=== PATIENT | female | born 1950 | race Caucasian/White ===

== ENCOUNTER 2021-05-24 10:30 | Inpatient (IN) ==
[2021-05-26] MEDS ORDERED: *HR* OxyCODONE/APAP 5/325 TABLET PO PRN (17:39)
[2021-05-26] MEDS ORDERED: Melatonin 3 MG TABLET PO PRN (17:39)
[2021-05-26] MEDS ORDERED: Ammonium Lactate 30 APPL/225 GM BOTTLE TP PRN (18:22)
[2021-05-27] MEDS ORDERED: *HR* Enoxaparin 30 MG/0.3 ML SYRINGE SQ SCH (06:00)
[2021-05-27 07:10] LABS: Basophils # 0.1 K/mcL (0.0-0.2); Basophils % 0.8 %; Eosinophils # 0.7 K/mcL (0.0-0.6); Eosinophils % 5.6 %; Hematocrit 35.7 % (35.3-44.9); Immature Granulocytes % 0.7 % (0-4); Lymphocytes # 1.8 K/mcL (0.6-4.6); Mean Corpuscular HGB Conc 33.6 g/dL (31.6-35.5); Mean Corpuscular Hemoglobin 27.7 pg (28.0-33.3); Mean Corpuscular Volume 82.4 fL (83.0-100.0); Mean Platelet Volume 8.6 fL (9.4-12.4); Monocytes # 0.9 K/mcL (0.0-1.3); Monocytes % 7.8 %; Neutrophils # 8.3 K/mcL (1.6-8.9); Platelet Count 344 K/mcL (140-400); Red Blood Count 4.33 M/mcL (3.82-4.97); Red Cell Distribution Width 14.1 % (11.5-14.5); Segmented Neutrophils % 70.1 %; White Blood Count 11.9 K/mcL (4.3-11.1)
[2021-05-27 07:31] LABS: Potassium 4.2 mEq/L (3.5-5.1)
[2021-05-27] MEDS: Aspirin 81 MG TAB.CHEW PO SCH (09:20)
[2021-05-27] MEDS: *HR* SitaGLIPtin 25 MG TABLET PO SCH (09:20)
[2021-05-27] MEDS: NIFEdipine XL (24 HR) 30 MG TAB.ER.24 PO SCH (09:21)
[2021-05-27] MEDS: Cholecalciferol (D-3) 1,000 UNIT (25MCG) TABLET PO SCH (09:22)
[2021-05-27] MEDS: Sennosides/Docusate Sodium TABLET PO PRN (10:22)
[2021-05-28] MEDS: *HR* Enoxaparin 40 MG/0.4 ML SYRINGE SQ SCH (05:09)
[2021-05-28] MEDS: *HR* SitaGLIPtin 25 MG TABLET PO SCH (09:26)
[2021-05-28] MEDS: NIFEdipine XL (24 HR) 30 MG TAB.ER.24 PO SCH (09:26)
[2021-05-28] MEDS: Cholecalciferol (D-3) 1,000 UNIT (25MCG) TABLET PO SCH (09:27)
[2021-05-28] MEDS: Aspirin 81 MG TAB.CHEW PO SCH (09:27)
[2021-05-28] MEDS: Sennosides/Docusate Sodium TABLET PO PRN (09:32)
[2021-05-29] MEDS: *HR* Enoxaparin 40 MG/0.4 ML SYRINGE SQ SCH (06:02)
[2021-05-29] MEDS: Cholecalciferol (D-3) 1,000 UNIT (25MCG) TABLET PO SCH (08:39)
[2021-05-29] MEDS: Aspirin 81 MG TAB.CHEW PO SCH (08:40)
[2021-05-29] MEDS: *HR* SitaGLIPtin 25 MG TABLET PO SCH (08:40)
[2021-05-29] MEDS: NIFEdipine XL (24 HR) 30 MG TAB.ER.24 PO SCH (08:40)
[2021-05-29] MEDS: Sennosides/Docusate Sodium TABLET PO PRN (08:50)
[2021-05-29] MEDS ORDERED: hydrALAZINE 25 MG TABLET PO PRN (14:22)
[2021-05-29 15:15] LABS: Calcium 10.6 mg/dL (8.6-10.3); Potassium 3.9 mEq/L (3.5-5.1)
[2021-05-30] MEDS: *HR* Enoxaparin 40 MG/0.4 ML SYRINGE SQ SCH (05:06)
[2021-05-30] MEDS: Sennosides/Docusate Sodium TABLET PO PRN (08:49)
[2021-05-30] MEDS: NIFEdipine XL (24 HR) 30 MG TAB.ER.24 PO SCH (08:49)
[2021-05-30] MEDS: Aspirin 81 MG TAB.CHEW PO SCH (08:49)
[2021-05-30] MEDS: Cholecalciferol (D-3) 1,000 UNIT (25MCG) TABLET PO SCH (08:50)
[2021-05-30] MEDS: *HR* SitaGLIPtin 25 MG TABLET PO SCH (08:50)
[2021-05-30] MEDS: MOM Conc 10 ML UD.LIQ PO PRN (09:35)
[2021-05-30] MEDS: Ondansetron ODT 4 MG TAB.RAPDIS SL PRN (12:55)
[2021-05-30] MEDS: Fluticasone Propionate Nasal 50 MCG/SPRAY BOTTLE NS PRN (20:16)
[2021-05-31] MEDS: *HR* Enoxaparin 40 MG/0.4 ML SYRINGE SQ SCH (05:13)
[2021-05-31] MEDS: Cholecalciferol (D-3) 1,000 UNIT (25MCG) TABLET PO SCH (08:24)
[2021-05-31] MEDS: *HR* SitaGLIPtin 25 MG TABLET PO SCH (08:24)
[2021-05-31] MEDS: Aspirin 81 MG TAB.CHEW PO SCH (08:24)
[2021-05-31] MEDS: NIFEdipine XL (24 HR) 30 MG TAB.ER.24 PO SCH (08:26)
[2021-05-31] MEDS: Magic Mouthwash 10 ML UD Cup PO SCH ×2 (11:43→17:06)
[2021-06-01] MEDS: *HR* Enoxaparin 40 MG/0.4 ML SYRINGE SQ SCH (05:55)
[2021-06-01] MEDS: Ondansetron ODT 4 MG TAB.RAPDIS SL PRN (06:29)
[2021-06-01] MEDS: Magic Mouthwash 10 ML UD Cup PO SCH ×3 (08:02→17:03)
[2021-06-01] MEDS: Aspirin 81 MG TAB.CHEW PO SCH (08:04)
[2021-06-01] MEDS: NIFEdipine XL (24 HR) 30 MG TAB.ER.24 PO SCH (08:05)
[2021-06-01] MEDS: *HR* SitaGLIPtin 25 MG TABLET PO SCH (08:05)
[2021-06-01] MEDS: Cholecalciferol (D-3) 1,000 UNIT (25MCG) TABLET PO SCH (08:05)
[2021-06-01] MEDS: MOM Conc 10 ML UD.LIQ PO PRN (13:50)
[2021-06-01] MEDS: Sennosides/Docusate Sodium TABLET PO PRN (13:50)
[2021-06-02] MEDS: *HR* Enoxaparin 40 MG/0.4 ML SYRINGE SQ SCH (05:25)
[2021-06-02] MEDS: Magic Mouthwash 10 ML UD Cup PO SCH ×3 (07:29→16:54)
[2021-06-02 08:26] LABS: Bilirubin,Urine Negative (Negative); Blood,Urine Large (Negative); Clarity,Urine Clear (Clear); Color,Urine Red (Yellow); Glucose,Urine (UA) Normal (Normal); Ketones,Urine Negative (Negative); Leukocyte Esterase,Urine Small (Negative); Nitrite,Urine Negative (Negative); Protein,Urine 30 mg/dL (Neg-Trace); Urobilinogen,Urine Normal (Normal)
[2021-06-02 08:43] LABS: Mucus,Urine Few per lpf (None-Few); RBC,Urine 50-100 per hpf (0-3); Squamous Epithelial Cell,Urine Few per hpf (None-Few)
[2021-06-02] MEDS: *HR* SitaGLIPtin 25 MG TABLET PO SCH (08:47)
[2021-06-02] MEDS: Cholecalciferol (D-3) 1,000 UNIT (25MCG) TABLET PO SCH (08:48)
[2021-06-02] MEDS: NIFEdipine XL (24 HR) 30 MG TAB.ER.24 PO SCH (08:48)
[2021-06-02] MEDS: Aspirin 81 MG TAB.CHEW PO SCH (08:48)
[2021-06-02] MEDS: MOM Conc 10 ML UD.LIQ PO PRN (18:53)
[2021-06-03] MEDS: *HR* Enoxaparin 40 MG/0.4 ML SYRINGE SQ SCH (06:25)
[2021-06-03 07:23] LABS: Hemoglobin 12.5 g/dL (11.5-15.4); Mean Corpuscular HGB Conc 33.8 g/dL (31.6-35.5); Mean Corpuscular Volume 82.8 fL (83.0-100.0); Mean Platelet Volume 8.3 fL (9.4-12.4); Platelet Count 311 K/mcL (140-400); Red Blood Count 4.47 M/mcL (3.82-4.97); Red Cell Distribution Width 14.1 % (11.5-14.5); White Blood Count 10.4 K/mcL (4.3-11.1)
[2021-06-03 07:41] LABS: BUN/Creatinine Ratio 22 (6-26); Blood Urea Nitrogen 20 mg/dL (8-23); Calcium 9.6 mg/dL (8.6-10.3); Carbon Dioxide 24 mEq/L (23-29); Chloride 102 mEq/L (98-107); Glucose 123 mg/dL (70-105); Magnesium 2.2 mg/dL (1.6-2.6); Osmolality,Calculated 282 (280-300); Potassium 3.7 mEq/L (3.5-5.1); Sodium 134 mEq/L (136-145); eGFR For African Americans > 60 (> 60); eGFR For Non-African Americans > 60 (> 60)
[2021-06-03] MEDS: Cholecalciferol (D-3) 1,000 UNIT (25MCG) TABLET PO SCH (08:35)
[2021-06-03] MEDS: Sulfamethoxazole/Trimeth DS 1 EACH TABLET PO SCH ×2 (08:36→20:00)
[2021-06-03] MEDS: *HR* SitaGLIPtin 25 MG TABLET PO SCH (08:36)
[2021-06-03] MEDS: Aspirin 81 MG TAB.CHEW PO SCH (08:36)
[2021-06-03] MEDS: NIFEdipine XL (24 HR) 30 MG TAB.ER.24 PO SCH (08:36)
[2021-06-03] MEDS: Magic Mouthwash 10 ML UD Cup PO SCH ×3 (08:37→16:55)
[2021-06-03] MEDS: Ondansetron ODT 4 MG TAB.RAPDIS SL PRN (12:31)
[2021-06-04] MEDS: *HR* Enoxaparin 40 MG/0.4 ML SYRINGE SQ SCH (06:28)
[2021-06-04] MEDS: Magic Mouthwash 10 ML UD Cup PO SCH ×3 (08:16→12:54)
[2021-06-04] MEDS: NIFEdipine XL (24 HR) 30 MG TAB.ER.24 PO SCH (08:17)
[2021-06-04] MEDS: Sulfamethoxazole/Trimeth DS 1 EACH TABLET PO SCH ×2 (08:17→21:27)
[2021-06-04] MEDS: Aspirin 81 MG TAB.CHEW PO SCH (08:17)
[2021-06-04] MEDS: *HR* SitaGLIPtin 25 MG TABLET PO SCH (08:17)
[2021-06-04] MEDS: Cholecalciferol (D-3) 1,000 UNIT (25MCG) TABLET PO SCH (08:17)
[2021-06-04] MEDS: Nystatin SUSP 5 ML UD.LIQ PO SCH ×3 (16:55→21:27)
[2021-06-05] MEDS: *HR* Enoxaparin 40 MG/0.4 ML SYRINGE SQ SCH (05:33)
[2021-06-05] MEDS: NIFEdipine XL (24 HR) 30 MG TAB.ER.24 PO SCH (07:43)
[2021-06-05] MEDS: Sulfamethoxazole/Trimeth DS 1 EACH TABLET PO SCH ×2 (07:43→20:53)
[2021-06-05] MEDS: Nystatin SUSP 5 ML UD.LIQ PO SCH ×4 (07:43→20:53)
[2021-06-05] MEDS: Aspirin 81 MG TAB.CHEW PO SCH (07:43)
[2021-06-05] MEDS: *HR* SitaGLIPtin 25 MG TABLET PO SCH (07:43)
[2021-06-05] MEDS: Cholecalciferol (D-3) 1,000 UNIT (25MCG) TABLET PO SCH (07:44)
[2021-06-06] MEDS: *HR* Enoxaparin 40 MG/0.4 ML SYRINGE SQ SCH (05:12)
[2021-06-06] MEDS: Aspirin 81 MG TAB.CHEW PO SCH (08:09)
[2021-06-06] MEDS: Cholecalciferol (D-3) 1,000 UNIT (25MCG) TABLET PO SCH (08:09)
[2021-06-06] MEDS: Sulfamethoxazole/Trimeth DS 1 EACH TABLET PO SCH ×2 (08:09→20:28)
[2021-06-06] MEDS: *HR* SitaGLIPtin 25 MG TABLET PO SCH (08:09)
[2021-06-06] MEDS: Nystatin SUSP 5 ML UD.LIQ PO SCH ×4 (08:10→20:28)
[2021-06-06] MEDS: NIFEdipine XL (24 HR) 30 MG TAB.ER.24 PO SCH (08:10)
[2021-06-06] MEDS: Fluticasone Propionate Nasal 50 MCG/SPRAY BOTTLE NS PRN (09:11)
[2021-06-07] MEDS: *HR* Enoxaparin 40 MG/0.4 ML SYRINGE SQ SCH (05:12)
[2021-06-07] MEDS: *HR* SitaGLIPtin 25 MG TABLET PO SCH (08:32)
[2021-06-07] MEDS: NIFEdipine XL (24 HR) 30 MG TAB.ER.24 PO SCH (08:32)
[2021-06-07] MEDS: Cholecalciferol (D-3) 1,000 UNIT (25MCG) TABLET PO SCH (08:32)
[2021-06-07] MEDS: Sulfamethoxazole/Trimeth DS 1 EACH TABLET PO SCH ×2 (08:32→21:11)
[2021-06-07] MEDS: Nystatin SUSP 5 ML UD.LIQ PO SCH ×4 (08:32→21:11)
[2021-06-07] MEDS: Aspirin 81 MG TAB.CHEW PO SCH (08:32)
[2021-06-07] MEDS: Fluticasone Propionate Nasal 50 MCG/SPRAY BOTTLE NS PRN (08:36)
[2021-06-08] MEDS: *HR* Enoxaparin 40 MG/0.4 ML SYRINGE SQ SCH (04:58)
[2021-06-08] MEDS: Cholecalciferol (D-3) 1,000 UNIT (25MCG) TABLET PO SCH (08:11)
[2021-06-08] MEDS: Aspirin 81 MG TAB.CHEW PO SCH (08:11)
[2021-06-08] MEDS: NIFEdipine XL (24 HR) 30 MG TAB.ER.24 PO SCH (08:11)
[2021-06-08] MEDS: Sulfamethoxazole/Trimeth DS 1 EACH TABLET PO SCH ×2 (08:11→21:22)
[2021-06-08] MEDS: *HR* SitaGLIPtin 25 MG TABLET PO SCH (08:11)
[2021-06-08] MEDS: Nystatin SUSP 5 ML UD.LIQ PO SCH ×4 (08:12→21:22)
[2021-06-09] MEDS: *HR* Enoxaparin 40 MG/0.4 ML SYRINGE SQ SCH (05:02)
[2021-06-09] MEDS: Cholecalciferol (D-3) 1,000 UNIT (25MCG) TABLET PO SCH (07:36)
[2021-06-09] MEDS: NIFEdipine XL (24 HR) 30 MG TAB.ER.24 PO SCH (07:37)
[2021-06-09] MEDS: Nystatin SUSP 5 ML UD.LIQ PO SCH ×4 (07:37→21:45)
[2021-06-09] MEDS: Aspirin 81 MG TAB.CHEW PO SCH (07:37)
[2021-06-09] MEDS: *HR* SitaGLIPtin 25 MG TABLET PO SCH (07:37)
[2021-06-09] MEDS: Sulfamethoxazole/Trimeth DS 1 EACH TABLET PO SCH (07:37)
[2021-06-10] MEDS: *HR* Enoxaparin 40 MG/0.4 ML SYRINGE SQ SCH (05:57)
[2021-06-10 06:40] LABS: Hematocrit 35.4 % (35.3-44.9); Hemoglobin 11.6 g/dL (11.5-15.4); Mean Corpuscular HGB Conc 32.8 g/dL (31.6-35.5); Mean Corpuscular Hemoglobin 27.7 pg (28.0-33.3); Mean Corpuscular Volume 84.5 fL (83.0-100.0); Mean Platelet Volume 8.6 fL (9.4-12.4); Platelet Count 340 K/mcL (140-400); Red Blood Count 4.19 M/mcL (3.82-4.97); Red Cell Distribution Width 14.9 % (11.5-14.5); White Blood Count 8.2 K/mcL (4.3-11.1)
[2021-06-10 07:03] LABS: BUN/Creatinine Ratio 21 (6-26); Blood Urea Nitrogen 22 mg/dL (8-23); Calcium 9.7 mg/dL (8.6-10.3); Carbon Dioxide 25 mEq/L (23-29); Chloride 104 mEq/L (98-107); Glucose 102 mg/dL (70-105); Osmolality,Calculated 284 (280-300); Potassium 4.6 mEq/L (3.5-5.1); Sodium 135 mEq/L (136-145); eGFR For African Americans > 60 (> 60); eGFR For Non-African Americans 51 (> 60)
[2021-06-10] MEDS: Cholecalciferol (D-3) 1,000 UNIT (25MCG) TABLET PO SCH (09:35)
[2021-06-10] MEDS: NIFEdipine XL (24 HR) 30 MG TAB.ER.24 PO SCH (09:35)
[2021-06-10] MEDS: *HR* SitaGLIPtin 25 MG TABLET PO SCH (09:35)
[2021-06-10] MEDS: Aspirin 81 MG TAB.CHEW PO SCH (09:35)
[2021-06-10] MEDS: Nystatin SUSP 5 ML UD.LIQ PO SCH ×4 (09:36→21:30)
[2021-06-10] MEDS: Sennosides/Docusate Sodium TABLET PO PRN (14:58)
[2021-06-10] MEDS ORDERED: Bisacodyl 10 MG RECTAL SUPPOSITORY RC PRN (17:06)
[2021-06-11] MEDS: *HR* Enoxaparin 40 MG/0.4 ML SYRINGE SQ SCH (06:36)
[2021-06-11] MEDS: *HR* SitaGLIPtin 25 MG TABLET PO SCH (08:19)
[2021-06-11] MEDS: Nystatin SUSP 5 ML UD.LIQ PO SCH ×4 (08:19→21:05)
[2021-06-11] MEDS: Cholecalciferol (D-3) 1,000 UNIT (25MCG) TABLET PO SCH (08:19)
[2021-06-11] MEDS: NIFEdipine XL (24 HR) 30 MG TAB.ER.24 PO SCH (08:20)
[2021-06-11] MEDS: Aspirin 81 MG TAB.CHEW PO SCH (08:20)
[2021-06-11] MEDS: Sennosides/Docusate Sodium TABLET PO PRN ×2 (08:20→21:05)
[2021-06-12] MEDS: *HR* Enoxaparin 40 MG/0.4 ML SYRINGE SQ SCH (06:19)
[2021-06-12 08:10] VITALS: BP 146/74
[2021-06-12] MEDS: Aspirin 81 MG TAB.CHEW PO SCH (08:52)
[2021-06-12] MEDS: *HR* SitaGLIPtin 25 MG TABLET PO SCH (08:52)
[2021-06-12] MEDS: NIFEdipine XL (24 HR) 30 MG TAB.ER.24 PO SCH (08:52)
[2021-06-12] MEDS: Cholecalciferol (D-3) 1,000 UNIT (25MCG) TABLET PO SCH (08:53)
[2021-06-12] MEDS: Nystatin SUSP 5 ML UD.LIQ PO SCH ×2 (08:54→12:12)
== END 2021-06-12 15:47 | disposition home health service (06) | DRG 945 ==
LOC: INPPIK 05-26 18:13
PROVIDERS: ADMIT Family Medicine; ATTEND Family Medicine

== ENCOUNTER 2021-08-24 11:38 | Inpatient (IN) ==
[2021-08-25] MEDS ORDERED: Ammonium Lactate 30 APPL/225 GM BOTTLE TP PRN (16:06)
[2021-08-25] MEDS ORDERED: Fluticasone Propionate Nasal 50 MCG/SPRAY BOTTLE NS PRN (16:06)
[2021-08-25] MEDS ORDERED: Saline Nasal Spray 44 ML BOTTLE NS PRN (16:06)
[2021-08-25] MEDS ORDERED: Sennosides/Docusate Sodium TABLET PO PRN (16:06)
[2021-08-25] MEDS ORDERED: D5% in Water 1,000 ML IVC PRN (16:18)
[2021-08-25] MEDS ORDERED: *HR* Dextrose 50 % in Water (Syg) 50 ML SYRINGE IVP PRN (16:18)
[2021-08-25] MEDS ORDERED: Dextrose Gel 15 GM/37.5 ML TUBE PO PRN ×2 (16:18)
[2021-08-25] MEDS: Insulin LISPRO 300 UNITS/3 ML VIAL SUBQ SCH ×2 (19:53→19:59)
[2021-08-25] MEDS: *HR* LORazepam 0.5 MG TABLET PO PRN (20:52)
[2021-08-25] MEDS: Sennosides/Docusate Sodium TABLET PO SCH (20:53)
[2021-08-26 08:01] LABS: Basophils # 0.1 K/mcL (0.0-0.2); Basophils % 0.8 %; Eosinophils # 0.9 K/mcL (0.0-0.6); Eosinophils % 10.1 %; Hematocrit 35.6 % (35.3-44.9); Hemoglobin 11.6 g/dL (11.5-15.4); Immature Granulocytes % 0.5 % (0-4); Lymphocytes % 10.9 %; Mean Corpuscular HGB Conc 32.6 g/dL (31.6-35.5); Mean Corpuscular Hemoglobin 28.4 pg (28.0-33.3); Mean Platelet Volume 9.4 fL (9.4-12.4); Monocytes # 0.6 K/mcL (0.0-1.3); Neutrophils # 6.2 K/mcL (1.6-8.9); Platelet Count 263 K/mcL (140-400); Red Blood Count 4.09 M/mcL (3.82-4.97); Red Cell Distribution Width 14.4 % (11.5-14.5); Segmented Neutrophils % 70.7 %; White Blood Count 8.7 K/mcL (4.3-11.1)
[2021-08-26] MEDS: Insulin LISPRO 300 UNITS/3 ML VIAL SUBQ SCH ×4 (09:01→20:55)
[2021-08-26] MEDS: Nystatin SUSP 5 ML UD.LIQ PO SCH (09:02)
[2021-08-26] MEDS: NIFEdipine XL (24 HR) 30 MG TAB.ER.24 PO SCH (09:03)
[2021-08-26] MEDS: Sennosides/Docusate Sodium TABLET PO SCH ×2 (09:03→20:54)
[2021-08-26] MEDS: Aspirin 81 MG TAB.CHEW PO SCH (09:03)
[2021-08-26] MEDS: Furosemide 20 MG TABLET PO SCH (09:03)
[2021-08-26] MEDS: Cholecalciferol (D-3) 1,000 UNIT (25MCG) TABLET PO SCH (09:04)
[2021-08-26] MEDS: *HR* SitaGLIPtin 25 MG TABLET PO SCH (09:04)
[2021-08-26 09:12] LABS: BUN/Creatinine Ratio 44 (6-26); Blood Urea Nitrogen 46 mg/dL (8-23); Calcium 10.1 mg/dL (8.6-10.3); Carbon Dioxide 27 mEq/L (23-29); Chloride 101 mEq/L (98-107); Glucose 103 mg/dL (70-105); Osmolality,Calculated 292 (280-300); Potassium 3.8 mEq/L (3.5-5.1); Sodium 135 mEq/L (136-145); eGFR For African Americans > 60 (> 60); eGFR For Non-African Americans 52 (> 60)
[2021-08-26] MEDS: Budesonide/Formoterol 160/4.5 1 PUFF INH IH SCH (20:49)
[2021-08-26] MEDS: *HR* LORazepam 0.5 MG TABLET PO PRN (20:53)
[2021-08-27] MEDS: *HR* Enoxaparin 40 MG/0.4 ML SYRINGE SQ SCH (05:22)
[2021-08-27] MEDS: Insulin LISPRO 300 UNITS/3 ML VIAL SUBQ SCH ×4 (08:26→21:42)
[2021-08-27] MEDS: Nystatin SUSP 5 ML UD.LIQ PO SCH (09:16)
[2021-08-27] MEDS: Furosemide 20 MG TABLET PO SCH (09:17)
[2021-08-27] MEDS: Cholecalciferol (D-3) 1,000 UNIT (25MCG) TABLET PO SCH (09:17)
[2021-08-27] MEDS: *HR* SitaGLIPtin 25 MG TABLET PO SCH (09:17)
[2021-08-27] MEDS: Aspirin 81 MG TAB.CHEW PO SCH (09:17)
[2021-08-27] MEDS: Sennosides/Docusate Sodium TABLET PO SCH ×2 (09:18→21:05)
[2021-08-27] MEDS: NIFEdipine XL (24 HR) 30 MG TAB.ER.24 PO SCH (09:18)
[2021-08-27] MEDS: Budesonide/Formoterol 160/4.5 1 PUFF INH IH SCH ×2 (09:50→21:42)
[2021-08-27] MEDS: *HR* LORazepam 0.5 MG TABLET PO PRN (21:14)
[2021-08-28] MEDS: *HR* Enoxaparin 40 MG/0.4 ML SYRINGE SQ SCH (05:40)
[2021-08-28] MEDS: Budesonide/Formoterol 160/4.5 1 PUFF INH IH SCH ×2 (07:30→18:48)
[2021-08-28] MEDS: Insulin LISPRO 300 UNITS/3 ML VIAL SUBQ SCH ×4 (07:53→20:57)
[2021-08-28] MEDS: Cholecalciferol (D-3) 1,000 UNIT (25MCG) TABLET PO SCH (08:42)
[2021-08-28] MEDS: Aspirin 81 MG TAB.CHEW PO SCH (08:43)
[2021-08-28] MEDS: *HR* SitaGLIPtin 25 MG TABLET PO SCH (08:44)
[2021-08-28] MEDS: Nystatin SUSP 5 ML UD.LIQ PO SCH (08:45)
[2021-08-28] MEDS: NIFEdipine XL (24 HR) 30 MG TAB.ER.24 PO SCH (08:45)
[2021-08-28] MEDS: Furosemide 20 MG TABLET PO SCH (08:45)
[2021-08-28] MEDS: Sennosides/Docusate Sodium TABLET PO SCH ×2 (08:49→21:02)
[2021-08-28 15:55] LABS: Bilirubin,Urine Negative (Negative); Blood,Urine Large (Negative); Clarity,Urine Cloudy (Clear); Color,Urine Yellow (Yellow); Glucose,Urine (UA) Normal (Normal); Ketones,Urine Negative (Negative); Leukocyte Esterase,Urine Large (Negative); Nitrite,Urine Positive (Negative); Protein,Urine 30 mg/dL (Neg-Trace); Specific Gravity,Urine >= 1.030 (1.010-1.025); Urobilinogen,Urine Normal (Normal)
[2021-08-28 16:02] LABS: Bacteria,Urine Many per hpf (None-Few); RBC,Urine Present per hpf (0-3); Squamous Epithelial Cell,Urine Present per hpf (None-Few); WBC,Urine TNTC per hpf (0-3)
[2021-08-28] MEDS: *HR* LORazepam 0.5 MG TABLET PO PRN (21:28)
[2021-08-29] MEDS: *HR* Enoxaparin 40 MG/0.4 ML SYRINGE SQ SCH (05:30)
[2021-08-29] MEDS: Insulin LISPRO 300 UNITS/3 ML VIAL SUBQ SCH ×4 (07:57→23:50)
[2021-08-29] MEDS: Aspirin 81 MG TAB.CHEW PO SCH (08:39)
[2021-08-29] MEDS: Cholecalciferol (D-3) 1,000 UNIT (25MCG) TABLET PO SCH (08:39)
[2021-08-29] MEDS: Sennosides/Docusate Sodium TABLET PO SCH ×2 (08:40→20:29)
[2021-08-29] MEDS: NIFEdipine XL (24 HR) 30 MG TAB.ER.24 PO SCH (08:42)
[2021-08-29] MEDS: *HR* SitaGLIPtin 25 MG TABLET PO SCH (08:42)
[2021-08-29] MEDS: Nystatin SUSP 5 ML UD.LIQ PO SCH (08:43)
[2021-08-29] MEDS: Furosemide 20 MG TABLET PO SCH (08:43)
[2021-08-29] MEDS: Budesonide/Formoterol 160/4.5 1 PUFF INH IH SCH ×2 (08:52→20:48)
[2021-08-29] MEDS: *HR* LORazepam 0.5 MG TABLET PO PRN ×2 (12:43→20:29)
[2021-08-30] MEDS: *HR* Enoxaparin 40 MG/0.4 ML SYRINGE SQ SCH (05:43)
[2021-08-30] MEDS: *HR* LORazepam 0.5 MG TABLET PO PRN ×2 (05:51→18:56)
[2021-08-30] MEDS: Insulin LISPRO 300 UNITS/3 ML VIAL SUBQ SCH ×4 (07:40→23:42)
[2021-08-30] MEDS: NIFEdipine XL (24 HR) 30 MG TAB.ER.24 PO SCH (08:42)
[2021-08-30] MEDS: Cholecalciferol (D-3) 1,000 UNIT (25MCG) TABLET PO SCH (08:42)
[2021-08-30] MEDS: *HR* SitaGLIPtin 25 MG TABLET PO SCH (08:42)
[2021-08-30] MEDS: Furosemide 20 MG TABLET PO SCH (08:43)
[2021-08-30] MEDS: Aspirin 81 MG TAB.CHEW PO SCH (08:43)
[2021-08-30] MEDS: Nystatin SUSP 5 ML UD.LIQ PO SCH (08:43)
[2021-08-30] MEDS: Sennosides/Docusate Sodium TABLET PO SCH ×2 (08:43→20:47)
[2021-08-30] MEDS: Sulfamethoxazole/Trimeth DS 1 EACH TABLET PO SCH ×2 (08:52→20:39)
[2021-08-30] MEDS: Budesonide/Formoterol 160/4.5 1 PUFF INH IH SCH ×2 (08:56→20:53)
[2021-08-31] MEDS: *HR* LORazepam 0.5 MG TABLET PO PRN ×3 (00:22→20:28)
[2021-08-31] MEDS: *HR* Enoxaparin 40 MG/0.4 ML SYRINGE SQ SCH (05:24)
[2021-08-31] MEDS: Nystatin SUSP 5 ML UD.LIQ PO SCH (09:42)
[2021-08-31] MEDS: *HR* SitaGLIPtin 25 MG TABLET PO SCH (09:42)
[2021-08-31] MEDS: Insulin LISPRO 300 UNITS/3 ML VIAL SUBQ SCH ×4 (09:42→20:22)
[2021-08-31] MEDS: NIFEdipine XL (24 HR) 30 MG TAB.ER.24 PO SCH (09:43)
[2021-08-31] MEDS: Cholecalciferol (D-3) 1,000 UNIT (25MCG) TABLET PO SCH (09:43)
[2021-08-31] MEDS: Aspirin 81 MG TAB.CHEW PO SCH (09:43)
[2021-08-31] MEDS: Furosemide 20 MG TABLET PO SCH (09:43)
[2021-08-31] MEDS: Sulfamethoxazole/Trimeth DS 1 EACH TABLET PO SCH ×2 (09:43→20:27)
[2021-08-31] MEDS: Sennosides/Docusate Sodium TABLET PO SCH ×2 (09:44→20:28)
[2021-08-31] MEDS: Budesonide/Formoterol 160/4.5 1 PUFF INH IH SCH ×2 (10:30→20:48)
[2021-09-01] MEDS: *HR* Enoxaparin 40 MG/0.4 ML SYRINGE SQ SCH (05:37)
[2021-09-01] MEDS: Budesonide/Formoterol 160/4.5 1 PUFF INH IH SCH ×2 (07:25→20:05)
[2021-09-01] MEDS: Insulin LISPRO 300 UNITS/3 ML VIAL SUBQ SCH ×4 (07:45→21:38)
[2021-09-01] MEDS: Cholecalciferol (D-3) 1,000 UNIT (25MCG) TABLET PO SCH (09:28)
[2021-09-01] MEDS: *HR* SitaGLIPtin 25 MG TABLET PO SCH (09:28)
[2021-09-01] MEDS: Aspirin 81 MG TAB.CHEW PO SCH (09:28)
[2021-09-01] MEDS: NIFEdipine XL (24 HR) 30 MG TAB.ER.24 PO SCH (09:29)
[2021-09-01] MEDS: Sulfamethoxazole/Trimeth DS 1 EACH TABLET PO SCH ×2 (09:30→20:41)
[2021-09-01] MEDS: Nystatin SUSP 5 ML UD.LIQ PO SCH (09:30)
[2021-09-01] MEDS: Furosemide 20 MG TABLET PO SCH (09:30)
[2021-09-01] MEDS: Sennosides/Docusate Sodium TABLET PO SCH ×2 (09:31→20:42)
[2021-09-01] MEDS: *HR* LORazepam 0.5 MG TABLET PO PRN (18:51)
[2021-09-02] MEDS: *HR* Enoxaparin 40 MG/0.4 ML SYRINGE SQ SCH (05:02)
[2021-09-02 06:43] LABS: Basophils % 0.7 %; Eosinophils # 0.7 K/mcL (0.0-0.6); Eosinophils % 12.2 %; Hematocrit 33.3 % (35.3-44.9); Hemoglobin 10.9 g/dL (11.5-15.4); Immature Granulocytes % 0.4 % (0-4); Lymphocytes # 0.7 K/mcL (0.6-4.6); Lymphocytes % 11.7 %; Mean Corpuscular HGB Conc 32.7 g/dL (31.6-35.5); Mean Corpuscular Hemoglobin 28.6 pg (28.0-33.3); Mean Corpuscular Volume 87.4 fL (83.0-100.0); Mean Platelet Volume 8.7 fL (9.4-12.4); Monocytes # 0.6 K/mcL (0.0-1.3); Monocytes % 10.4 %; Neutrophils # 3.6 K/mcL (1.6-8.9); Platelet Count 185 K/mcL (140-400); Red Blood Count 3.81 M/mcL (3.82-4.97); Red Cell Distribution Width 15.1 % (11.5-14.5); Segmented Neutrophils % 64.6 %; White Blood Count 5.6 K/mcL (4.3-11.1)
[2021-09-02 07:15] LABS: BUN/Creatinine Ratio 16 (6-26); Blood Urea Nitrogen 16 mg/dL (8-23); Calcium 9.1 mg/dL (8.6-10.3); Carbon Dioxide 24 mEq/L (23-29); Chloride 106 mEq/L (98-107); Glucose 115 mg/dL (70-105); Osmolality,Calculated 286 (280-300); Potassium 3.8 mEq/L (3.5-5.1); Sodium 137 mEq/L (136-145); eGFR For African Americans > 60 (> 60); eGFR For Non-African Americans 53 (> 60)
[2021-09-02] MEDS: Budesonide/Formoterol 160/4.5 1 PUFF INH IH SCH ×2 (07:17→19:49)
[2021-09-02] MEDS: Insulin LISPRO 300 UNITS/3 ML VIAL SUBQ SCH ×4 (07:29→21:12)
[2021-09-02] MEDS: *HR* SitaGLIPtin 25 MG TABLET PO SCH (09:20)
[2021-09-02] MEDS: Furosemide 20 MG TABLET PO SCH (09:20)
[2021-09-02] MEDS: Nystatin SUSP 5 ML UD.LIQ PO SCH (09:21)
[2021-09-02] MEDS: NIFEdipine XL (24 HR) 30 MG TAB.ER.24 PO SCH (09:21)
[2021-09-02] MEDS: Aspirin 81 MG TAB.CHEW PO SCH (09:21)
[2021-09-02] MEDS: Sulfamethoxazole/Trimeth DS 1 EACH TABLET PO SCH ×2 (09:21→21:12)
[2021-09-02] MEDS: Cholecalciferol (D-3) 1,000 UNIT (25MCG) TABLET PO SCH (09:21)
[2021-09-02] MEDS: Sennosides/Docusate Sodium TABLET PO SCH ×2 (09:29→21:11)
[2021-09-02] MEDS: *HR* LORazepam 0.5 MG TABLET PO PRN (18:46)
[2021-09-03] MEDS: *HR* Enoxaparin 40 MG/0.4 ML SYRINGE SQ SCH (05:02)
[2021-09-03] MEDS: Insulin LISPRO 300 UNITS/3 ML VIAL SUBQ SCH ×4 (07:41→19:31)
[2021-09-03] MEDS: Budesonide/Formoterol 160/4.5 1 PUFF INH IH SCH ×2 (08:20→20:04)
[2021-09-03] MEDS: NIFEdipine XL (24 HR) 30 MG TAB.ER.24 PO SCH (08:21)
[2021-09-03] MEDS: Cholecalciferol (D-3) 1,000 UNIT (25MCG) TABLET PO SCH (08:21)
[2021-09-03] MEDS: Sulfamethoxazole/Trimeth DS 1 EACH TABLET PO SCH ×2 (08:22→19:31)
[2021-09-03] MEDS: Sennosides/Docusate Sodium TABLET PO SCH ×2 (08:22→19:30)
[2021-09-03] MEDS: Furosemide 20 MG TABLET PO SCH (08:22)
[2021-09-03] MEDS: *HR* SitaGLIPtin 25 MG TABLET PO SCH (08:22)
[2021-09-03] MEDS: Aspirin 81 MG TAB.CHEW PO SCH (08:22)
[2021-09-03] MEDS: Nystatin SUSP 5 ML UD.LIQ PO SCH (08:23)
[2021-09-03] MEDS: *HR* LORazepam 0.5 MG TABLET PO PRN (19:30)
[2021-09-04] MEDS: *HR* Enoxaparin 40 MG/0.4 ML SYRINGE SQ SCH (05:23)
[2021-09-04] MEDS: Aspirin 81 MG TAB.CHEW PO SCH (08:13)
[2021-09-04] MEDS: Furosemide 20 MG TABLET PO SCH (08:13)
[2021-09-04] MEDS: NIFEdipine XL (24 HR) 30 MG TAB.ER.24 PO SCH (08:13)
[2021-09-04] MEDS: Sulfamethoxazole/Trimeth DS 1 EACH TABLET PO SCH ×2 (08:13→21:08)
[2021-09-04] MEDS: Cholecalciferol (D-3) 1,000 UNIT (25MCG) TABLET PO SCH (08:13)
[2021-09-04] MEDS: Sennosides/Docusate Sodium TABLET PO SCH ×2 (08:13→23:49)
[2021-09-04] MEDS: *HR* SitaGLIPtin 25 MG TABLET PO SCH (08:13)
[2021-09-04] MEDS: Insulin LISPRO 300 UNITS/3 ML VIAL SUBQ SCH ×4 (08:14→23:49)
[2021-09-04] MEDS: Budesonide/Formoterol 160/4.5 1 PUFF INH IH SCH ×2 (08:15→19:50)
[2021-09-04] MEDS: Nystatin SUSP 5 ML UD.LIQ PO SCH (08:18)
[2021-09-04] MEDS: *HR* LORazepam 0.5 MG TABLET PO PRN (19:37)
[2021-09-05] MEDS: *HR* Enoxaparin 40 MG/0.4 ML SYRINGE SQ SCH (05:22)
[2021-09-05] MEDS: Budesonide/Formoterol 160/4.5 1 PUFF INH IH SCH ×2 (08:07→19:36)
[2021-09-05] MEDS: Insulin LISPRO 300 UNITS/3 ML VIAL SUBQ SCH ×4 (08:28→21:57)
[2021-09-05] MEDS: Cholecalciferol (D-3) 1,000 UNIT (25MCG) TABLET PO SCH (08:29)
[2021-09-05] MEDS: Sennosides/Docusate Sodium TABLET PO SCH ×2 (08:29→20:24)
[2021-09-05] MEDS: Nystatin SUSP 5 ML UD.LIQ PO SCH (08:29)
[2021-09-05] MEDS: Furosemide 20 MG TABLET PO SCH (08:29)
[2021-09-05] MEDS: Aspirin 81 MG TAB.CHEW PO SCH (08:30)
[2021-09-05] MEDS: NIFEdipine XL (24 HR) 30 MG TAB.ER.24 PO SCH (08:30)
[2021-09-05] MEDS: Sulfamethoxazole/Trimeth DS 1 EACH TABLET PO SCH ×2 (08:30→20:12)
[2021-09-05] MEDS: *HR* SitaGLIPtin 25 MG TABLET PO SCH (08:30)
[2021-09-05] MEDS: *HR* LORazepam 0.5 MG TABLET PO PRN (18:51)
[2021-09-06] MEDS: *HR* Enoxaparin 40 MG/0.4 ML SYRINGE SQ SCH (05:36)
[2021-09-06] MEDS: Budesonide/Formoterol 160/4.5 1 PUFF INH IH SCH ×2 (08:44→20:11)
[2021-09-06] MEDS: Nystatin SUSP 5 ML UD.LIQ PO SCH (10:12)
[2021-09-06] MEDS: Aspirin 81 MG TAB.CHEW PO SCH (10:12)
[2021-09-06] MEDS: NIFEdipine XL (24 HR) 30 MG TAB.ER.24 PO SCH (10:13)
[2021-09-06] MEDS: Furosemide 20 MG TABLET PO SCH (10:13)
[2021-09-06] MEDS: *HR* SitaGLIPtin 25 MG TABLET PO SCH (10:13)
[2021-09-06] MEDS: Cholecalciferol (D-3) 1,000 UNIT (25MCG) TABLET PO SCH (10:13)
[2021-09-06] MEDS: Sennosides/Docusate Sodium TABLET PO SCH ×2 (10:15→21:08)
[2021-09-06] MEDS: Insulin LISPRO 300 UNITS/3 ML VIAL SUBQ SCH ×3 (10:18→17:20)
[2021-09-06] MEDS: Sulfamethoxazole/Trimeth DS 1 EACH TABLET PO SCH (10:24)
[2021-09-06] MEDS: *HR* LORazepam 0.5 MG TABLET PO PRN (18:39)
[2021-09-07] MEDS: Insulin LISPRO 300 UNITS/3 ML VIAL SUBQ SCH ×5 (00:39→20:53)
[2021-09-07] MEDS: *HR* Enoxaparin 40 MG/0.4 ML SYRINGE SQ SCH (05:44)
[2021-09-07 07:50] LABS: Hematocrit 33.5 % (35.3-44.9); Hemoglobin 10.8 g/dL (11.5-15.4); Mean Corpuscular HGB Conc 32.2 g/dL (31.6-35.5); Mean Corpuscular Hemoglobin 28.6 pg (28.0-33.3); Mean Corpuscular Volume 88.9 fL (83.0-100.0); Mean Platelet Volume 8.6 fL (9.4-12.4); Platelet Count 222 K/mcL (140-400); Red Blood Count 3.77 M/mcL (3.82-4.97); Red Cell Distribution Width 15.6 % (11.5-14.5); White Blood Count 7.5 K/mcL (4.3-11.1)
[2021-09-07 08:06] LABS: BUN/Creatinine Ratio 17 (6-26); Blood Urea Nitrogen 17 mg/dL (8-23); Calcium 9.3 mg/dL (8.6-10.3); Carbon Dioxide 25 mEq/L (23-29); Chloride 105 mEq/L (98-107); Glucose 109 mg/dL (70-105); Osmolality,Calculated 284 (280-300); Potassium 3.9 mEq/L (3.5-5.1); Sodium 136 mEq/L (136-145); eGFR For African Americans > 60 (> 60); eGFR For Non-African Americans 55 (> 60)
[2021-09-07] MEDS: Budesonide/Formoterol 160/4.5 1 PUFF INH IH SCH ×2 (08:55→20:03)
[2021-09-07] MEDS: Furosemide 20 MG TABLET PO SCH (09:02)
[2021-09-07] MEDS: Cholecalciferol (D-3) 1,000 UNIT (25MCG) TABLET PO SCH (09:02)
[2021-09-07] MEDS: *HR* SitaGLIPtin 25 MG TABLET PO SCH (09:03)
[2021-09-07] MEDS: NIFEdipine XL (24 HR) 30 MG TAB.ER.24 PO SCH (09:03)
[2021-09-07] MEDS: Aspirin 81 MG TAB.CHEW PO SCH (09:04)
[2021-09-07] MEDS: Sennosides/Docusate Sodium TABLET PO SCH ×2 (09:04→21:02)
[2021-09-07] MEDS: Nystatin SUSP 5 ML UD.LIQ PO SCH (09:18)
[2021-09-07] MEDS ORDERED: Furosemide 20 MG TABLET PO ONE (11:59)
[2021-09-07] MEDS: *HR* LORazepam 0.5 MG TABLET PO PRN (18:54)
[2021-09-08] MEDS: *HR* Enoxaparin 40 MG/0.4 ML SYRINGE SQ SCH (05:50)
[2021-09-08] MEDS: Budesonide/Formoterol 160/4.5 1 PUFF INH IH SCH ×2 (07:55→19:59)
[2021-09-08] MEDS: NIFEdipine XL (24 HR) 30 MG TAB.ER.24 PO SCH (08:38)
[2021-09-08] MEDS: Insulin LISPRO 300 UNITS/3 ML VIAL SUBQ SCH ×4 (08:38→20:40)
[2021-09-08] MEDS: Aspirin 81 MG TAB.CHEW PO SCH (08:38)
[2021-09-08] MEDS: *HR* SitaGLIPtin 25 MG TABLET PO SCH (08:38)
[2021-09-08] MEDS: Sennosides/Docusate Sodium TABLET PO SCH ×2 (08:38→21:00)
[2021-09-08] MEDS: Cholecalciferol (D-3) 1,000 UNIT (25MCG) TABLET PO SCH (08:38)
[2021-09-08] MEDS: Furosemide 20 MG TABLET PO SCH (08:39)
[2021-09-08] MEDS: Nystatin SUSP 5 ML UD.LIQ PO SCH (08:39)
[2021-09-08] MEDS: *HR* LORazepam 0.5 MG TABLET PO PRN (18:23)
[2021-09-09] MEDS: *HR* Enoxaparin 40 MG/0.4 ML SYRINGE SQ SCH (05:43)
[2021-09-09] MEDS: Insulin LISPRO 300 UNITS/3 ML VIAL SUBQ SCH ×4 (07:43→20:11)
[2021-09-09] MEDS: Budesonide/Formoterol 160/4.5 1 PUFF INH IH SCH ×2 (09:06→20:04)
[2021-09-09] MEDS: NIFEdipine XL (24 HR) 30 MG TAB.ER.24 PO SCH (09:21)
[2021-09-09] MEDS: Cholecalciferol (D-3) 1,000 UNIT (25MCG) TABLET PO SCH (09:22)
[2021-09-09] MEDS: Sennosides/Docusate Sodium TABLET PO SCH ×2 (09:22→20:11)
[2021-09-09] MEDS: Aspirin 81 MG TAB.CHEW PO SCH (09:22)
[2021-09-09] MEDS: *HR* SitaGLIPtin 25 MG TABLET PO SCH (09:22)
[2021-09-09] MEDS: Furosemide 20 MG TABLET PO SCH (09:23)
[2021-09-09] MEDS ORDERED: *HR* LORazepam 2 MG/ML VIAL IVP PRN (10:08)
[2021-09-09] MEDS: Nystatin SUSP 5 ML UD.LIQ PO SCH ×2 (12:35)
[2021-09-09] MEDS ORDERED: Furosemide 20 MG TABLET PO ONE (16:37)
[2021-09-09] MEDS: *HR* LORazepam 0.5 MG TABLET PO PRN (19:16)
[2021-09-10] MEDS: *HR* Enoxaparin 40 MG/0.4 ML SYRINGE SQ SCH (05:58)
[2021-09-10 06:42] LABS: BUN/Creatinine Ratio 23 (6-26); Blood Urea Nitrogen 20 mg/dL (8-23); Calcium 9.2 mg/dL (8.6-10.3); Carbon Dioxide 24 mEq/L (23-29); Chloride 102 mEq/L (98-107); Glucose 115 mg/dL (70-105); Osmolality,Calculated 284 (280-300); Potassium 3.9 mEq/L (3.5-5.1); Sodium 135 mEq/L (136-145); eGFR For African Americans > 60 (> 60); eGFR For Non-African Americans > 60 (> 60)
[2021-09-10] MEDS: Insulin LISPRO 300 UNITS/3 ML VIAL SUBQ SCH ×4 (07:59→20:23)
[2021-09-10] MEDS ORDERED: Furosemide 20 MG TABLET PO ONE (08:52)
[2021-09-10] MEDS: Cholecalciferol (D-3) 1,000 UNIT (25MCG) TABLET PO SCH (08:57)
[2021-09-10] MEDS: *HR* SitaGLIPtin 25 MG TABLET PO SCH (08:58)
[2021-09-10] MEDS: Nystatin SUSP 5 ML UD.LIQ PO SCH (08:59)
[2021-09-10] MEDS: NIFEdipine XL (24 HR) 30 MG TAB.ER.24 PO SCH (08:59)
[2021-09-10] MEDS: Furosemide 20 MG TABLET PO SCH (09:00)
[2021-09-10] MEDS ORDERED: Nystatin SUSP 5 ML UD.LIQ PO SCH (09:00)
[2021-09-10] MEDS: Aspirin 81 MG TAB.CHEW PO SCH (09:00)
[2021-09-10] MEDS: Budesonide/Formoterol 160/4.5 1 PUFF INH IH SCH ×2 (09:13→20:18)
[2021-09-10] MEDS: Sennosides/Docusate Sodium TABLET PO SCH ×2 (09:16→20:23)
[2021-09-10] MEDS: *HR* LORazepam 0.5 MG TABLET PO PRN (18:48)
[2021-09-11] MEDS: Insulin LISPRO 300 UNITS/3 ML VIAL SUBQ SCH ×4 (07:22→19:38)
[2021-09-11] MEDS: *HR* Enoxaparin 40 MG/0.4 ML SYRINGE SQ SCH (07:23)
[2021-09-11] MEDS: Budesonide/Formoterol 160/4.5 1 PUFF INH IH SCH ×2 (07:29→18:55)
[2021-09-11 07:49] LABS: BUN/Creatinine Ratio 22 (6-26); Blood Urea Nitrogen 18 mg/dL (8-23); Calcium 9.3 mg/dL (8.6-10.3); Carbon Dioxide 26 mEq/L (23-29); Chloride 103 mEq/L (98-107); Glucose 112 mg/dL (70-105); Magnesium 1.8 mg/dL (1.6-2.6); Osmolality,Calculated 287 (280-300); Potassium 3.7 mEq/L (3.5-5.1); Sodium 137 mEq/L (136-145); eGFR For African Americans > 60 (> 60); eGFR For Non-African Americans > 60 (> 60)
[2021-09-11] MEDS: Furosemide 20 MG TABLET PO SCH (08:26)
[2021-09-11] MEDS: Cholecalciferol (D-3) 1,000 UNIT (25MCG) TABLET PO SCH (08:27)
[2021-09-11] MEDS: NIFEdipine XL (24 HR) 30 MG TAB.ER.24 PO SCH (08:27)
[2021-09-11] MEDS: Aspirin 81 MG TAB.CHEW PO SCH (08:27)
[2021-09-11] MEDS: Sennosides/Docusate Sodium TABLET PO SCH ×2 (08:27→19:38)
[2021-09-11] MEDS: *HR* SitaGLIPtin 25 MG TABLET PO SCH (08:28)
[2021-09-11] MEDS: Nystatin SUSP 5 ML UD.LIQ PO SCH (08:29)
[2021-09-11] MEDS: Nystatin Cream 15 GM TUBE TP SCH (19:37)
[2021-09-11] MEDS: *HR* LORazepam 0.5 MG TABLET PO PRN (19:42)
[2021-09-12] MEDS: *HR* Enoxaparin 40 MG/0.4 ML SYRINGE SQ SCH (05:38)
[2021-09-12] MEDS: Budesonide/Formoterol 160/4.5 1 PUFF INH IH SCH ×2 (08:00→20:08)
[2021-09-12] MEDS: Insulin LISPRO 300 UNITS/3 ML VIAL SUBQ SCH ×4 (08:22→21:57)
[2021-09-12] MEDS: Sennosides/Docusate Sodium TABLET PO SCH ×2 (08:40→21:59)
[2021-09-12] MEDS: Furosemide 20 MG TABLET PO SCH (08:40)
[2021-09-12] MEDS: Cholecalciferol (D-3) 1,000 UNIT (25MCG) TABLET PO SCH (08:40)
[2021-09-12] MEDS: *HR* SitaGLIPtin 25 MG TABLET PO SCH (08:40)
[2021-09-12] MEDS: Aspirin 81 MG TAB.CHEW PO SCH (08:40)
[2021-09-12] MEDS: NIFEdipine XL (24 HR) 30 MG TAB.ER.24 PO SCH (08:40)
[2021-09-12] MEDS: Nystatin SUSP 5 ML UD.LIQ PO SCH (08:41)
[2021-09-12] MEDS: Nystatin Cream 15 GM TUBE TP SCH ×2 (08:41→21:59)
[2021-09-12] MEDS: *HR* LORazepam 0.5 MG TABLET PO PRN (18:47)
[2021-09-13] MEDS: *HR* Enoxaparin 40 MG/0.4 ML SYRINGE SQ SCH (06:06)
[2021-09-13] MEDS: Insulin LISPRO 300 UNITS/3 ML VIAL SUBQ SCH ×4 (08:22→21:18)
[2021-09-13] MEDS: Budesonide/Formoterol 160/4.5 1 PUFF INH IH SCH ×2 (08:26→20:16)
[2021-09-13] MEDS: Aspirin 81 MG TAB.CHEW PO SCH (08:36)
[2021-09-13] MEDS: Nystatin SUSP 5 ML UD.LIQ PO SCH (08:36)
[2021-09-13] MEDS: Sennosides/Docusate Sodium TABLET PO SCH ×2 (08:37→21:19)
[2021-09-13] MEDS: Nystatin Cream 15 GM TUBE TP SCH ×2 (08:37→21:19)
[2021-09-13] MEDS: Cholecalciferol (D-3) 1,000 UNIT (25MCG) TABLET PO SCH (08:37)
[2021-09-13] MEDS: NIFEdipine XL (24 HR) 30 MG TAB.ER.24 PO SCH (08:37)
[2021-09-13] MEDS: Furosemide 20 MG TABLET PO SCH (08:37)
[2021-09-13] MEDS: *HR* SitaGLIPtin 25 MG TABLET PO SCH (08:37)
[2021-09-13] MEDS: *HR* LORazepam 0.5 MG TABLET PO PRN (18:39)
[2021-09-14] MEDS: *HR* Enoxaparin 40 MG/0.4 ML SYRINGE SQ SCH (06:07)
[2021-09-14 06:54] LABS: Mean Corpuscular HGB Conc 32.3 g/dL (31.6-35.5); Mean Corpuscular Hemoglobin 28.5 pg (28.0-33.3); Mean Corpuscular Volume 88.3 fL (83.0-100.0); Mean Platelet Volume 8.6 fL (9.4-12.4); Platelet Count 345 K/mcL (140-400); Red Blood Count 3.51 M/mcL (3.82-4.97); Red Cell Distribution Width 15.3 % (11.5-14.5); White Blood Count 10.4 K/mcL (4.3-11.1)
[2021-09-14 07:24] LABS: BUN/Creatinine Ratio 20 (6-26); Blood Urea Nitrogen 16 mg/dL (8-23); Calcium 9.1 mg/dL (8.6-10.3); Carbon Dioxide 27 mEq/L (23-29); Chloride 104 mEq/L (98-107); Glucose 97 mg/dL (70-105); Osmolality,Calculated 287 (280-300); Potassium 3.5 mEq/L (3.5-5.1); Sodium 138 mEq/L (136-145); eGFR For African Americans > 60 (> 60); eGFR For Non-African Americans > 60 (> 60)
[2021-09-14] MEDS: Budesonide/Formoterol 160/4.5 1 PUFF INH IH SCH ×2 (08:04→20:15)
[2021-09-14] MEDS: Insulin LISPRO 300 UNITS/3 ML VIAL SUBQ SCH ×4 (09:24→20:12)
[2021-09-14] MEDS: Nystatin SUSP 5 ML UD.LIQ PO SCH (09:24)
[2021-09-14] MEDS: Aspirin 81 MG TAB.CHEW PO SCH (09:24)
[2021-09-14] MEDS: Furosemide 20 MG TABLET PO SCH (09:25)
[2021-09-14] MEDS: *HR* SitaGLIPtin 25 MG TABLET PO SCH (09:25)
[2021-09-14] MEDS: NIFEdipine XL (24 HR) 30 MG TAB.ER.24 PO SCH (09:25)
[2021-09-14] MEDS: Cholecalciferol (D-3) 1,000 UNIT (25MCG) TABLET PO SCH (09:26)
[2021-09-14] MEDS: Sennosides/Docusate Sodium TABLET PO SCH ×2 (09:26→20:11)
[2021-09-14] MEDS: Nystatin Cream 15 GM TUBE TP SCH ×2 (09:29→20:12)
[2021-09-14] MEDS: *HR* LORazepam 0.5 MG TABLET PO PRN (18:31)
[2021-09-15] MEDS: *HR* Enoxaparin 40 MG/0.4 ML SYRINGE SQ SCH (06:00)
[2021-09-15] MEDS: Budesonide/Formoterol 160/4.5 1 PUFF INH IH SCH ×2 (06:46→19:56)
[2021-09-15] MEDS: Insulin LISPRO 300 UNITS/3 ML VIAL SUBQ SCH ×4 (07:50→21:19)
[2021-09-15] MEDS: Sennosides/Docusate Sodium TABLET PO SCH ×2 (08:10→21:10)
[2021-09-15] MEDS: Aspirin 81 MG TAB.CHEW PO SCH (08:10)
[2021-09-15] MEDS: *HR* SitaGLIPtin 25 MG TABLET PO SCH (08:11)
[2021-09-15] MEDS: Nystatin SUSP 5 ML UD.LIQ PO SCH (08:11)
[2021-09-15] MEDS: Nystatin Cream 15 GM TUBE TP SCH ×2 (08:11→21:10)
[2021-09-15] MEDS: Cholecalciferol (D-3) 1,000 UNIT (25MCG) TABLET PO SCH (08:11)
[2021-09-15] MEDS: Furosemide 20 MG TABLET PO SCH (08:11)
[2021-09-15] MEDS: NIFEdipine XL (24 HR) 30 MG TAB.ER.24 PO SCH (08:11)
[2021-09-15] MEDS: *HR* LORazepam 0.5 MG TABLET PO PRN (18:34)
[2021-09-16] MEDS: *HR* Enoxaparin 40 MG/0.4 ML SYRINGE SQ SCH (06:10)
[2021-09-16] MEDS: Insulin LISPRO 300 UNITS/3 ML VIAL SUBQ SCH ×3 (07:44→16:20)
[2021-09-16] MEDS: Furosemide 20 MG TABLET PO SCH (07:45)
[2021-09-16] MEDS: Nystatin Cream 15 GM TUBE TP SCH ×2 (07:45→20:30)
[2021-09-16] MEDS: Aspirin 81 MG TAB.CHEW PO SCH (07:45)
[2021-09-16] MEDS: *HR* SitaGLIPtin 25 MG TABLET PO SCH (07:45)
[2021-09-16] MEDS: NIFEdipine XL (24 HR) 30 MG TAB.ER.24 PO SCH (07:46)
[2021-09-16] MEDS: Nystatin SUSP 5 ML UD.LIQ PO SCH (07:46)
[2021-09-16] MEDS: Cholecalciferol (D-3) 1,000 UNIT (25MCG) TABLET PO SCH (07:47)
[2021-09-16] MEDS: Sennosides/Docusate Sodium TABLET PO SCH ×2 (07:51→20:30)
[2021-09-16] MEDS: Budesonide/Formoterol 160/4.5 1 PUFF INH IH SCH ×2 (07:54→20:08)
[2021-09-16] MEDS: *HR* LORazepam 0.5 MG TABLET PO PRN (18:44)
[2021-09-17] MEDS: *HR* Enoxaparin 40 MG/0.4 ML SYRINGE SQ SCH (06:19)
[2021-09-17] MEDS: Budesonide/Formoterol 160/4.5 1 PUFF INH IH SCH ×2 (08:03→20:09)
[2021-09-17] MEDS: Furosemide 20 MG TABLET PO SCH (08:18)
[2021-09-17] MEDS: *HR* SitaGLIPtin 25 MG TABLET PO SCH (08:18)
[2021-09-17] MEDS: Aspirin 81 MG TAB.CHEW PO SCH (08:18)
[2021-09-17] MEDS: NIFEdipine XL (24 HR) 30 MG TAB.ER.24 PO SCH (08:19)
[2021-09-17] MEDS: Nystatin SUSP 5 ML UD.LIQ PO SCH (08:19)
[2021-09-17] MEDS: Cholecalciferol (D-3) 1,000 UNIT (25MCG) TABLET PO SCH (08:19)
[2021-09-17] MEDS: Sennosides/Docusate Sodium TABLET PO SCH ×2 (08:19→20:26)
[2021-09-17] MEDS: Nystatin Cream 15 GM TUBE TP SCH ×2 (08:22→20:27)
[2021-09-17] MEDS: *HR* LORazepam 0.5 MG TABLET PO PRN (18:46)
[2021-09-18] MEDS: *HR* Enoxaparin 40 MG/0.4 ML SYRINGE SQ SCH (05:58)
[2021-09-18] MEDS: Budesonide/Formoterol 160/4.5 1 PUFF INH IH SCH ×2 (07:54→20:09)
[2021-09-18] MEDS: Sennosides/Docusate Sodium TABLET PO SCH ×2 (08:11→20:32)
[2021-09-18] MEDS: Nystatin SUSP 5 ML UD.LIQ PO SCH (08:11)
[2021-09-18] MEDS: NIFEdipine XL (24 HR) 30 MG TAB.ER.24 PO SCH (08:11)
[2021-09-18] MEDS: Aspirin 81 MG TAB.CHEW PO SCH (08:11)
[2021-09-18] MEDS: Cholecalciferol (D-3) 1,000 UNIT (25MCG) TABLET PO SCH (08:11)
[2021-09-18] MEDS: *HR* SitaGLIPtin 25 MG TABLET PO SCH (08:11)
[2021-09-18] MEDS: Furosemide 20 MG TABLET PO SCH (08:11)
[2021-09-18] MEDS: Nystatin Cream 15 GM TUBE TP SCH ×2 (08:13→20:32)
[2021-09-18 08:16] LABS: Basophils # 0.1 K/mcL (0.0-0.2); Basophils % 0.9 %; Eosinophils # 0.2 K/mcL (0.0-0.6); Eosinophils % 1.7 %; Hematocrit 31.7 % (35.3-44.9); Hemoglobin 10.3 g/dL (11.5-15.4); Lymphocytes # 1.2 K/mcL (0.6-4.6); Lymphocytes % 10.4 %; Mean Corpuscular HGB Conc 32.5 g/dL (31.6-35.5); Mean Corpuscular Hemoglobin 28.8 pg (28.0-33.3); Mean Corpuscular Volume 88.5 fL (83.0-100.0); Mean Platelet Volume 8.7 fL (9.4-12.4); Monocytes # 0.9 K/mcL (0.0-1.3); Monocytes % 7.6 %; Neutrophils # 9.3 K/mcL (1.6-8.9); Platelet Count 451 K/mcL (140-400); Red Blood Count 3.58 M/mcL (3.82-4.97); Red Cell Distribution Width 14.7 % (11.5-14.5); Segmented Neutrophils % 78.4 %; White Blood Count 11.8 K/mcL (4.3-11.1)
[2021-09-18 08:26] LABS: BUN/Creatinine Ratio 18 (6-26); Blood Urea Nitrogen 16 mg/dL (8-23); Calcium 9.4 mg/dL (8.6-10.3); Carbon Dioxide 27 mEq/L (23-29); Chloride 101 mEq/L (98-107); Glucose 144 mg/dL (70-105); Osmolality,Calculated 282 (280-300); Potassium 3.7 mEq/L (3.5-5.1); Sodium 134 mEq/L (136-145); eGFR For African Americans > 60 (> 60); eGFR For Non-African Americans > 60 (> 60)
[2021-09-18] MEDS: *HR* LORazepam 0.5 MG TABLET PO PRN (18:42)
[2021-09-19] MEDS: *HR* Enoxaparin 40 MG/0.4 ML SYRINGE SQ SCH (05:39)
[2021-09-19] MEDS: Budesonide/Formoterol 160/4.5 1 PUFF INH IH SCH ×2 (08:16→19:46)
[2021-09-19] MEDS: *HR* SitaGLIPtin 25 MG TABLET PO SCH (09:02)
[2021-09-19] MEDS: Nystatin SUSP 5 ML UD.LIQ PO SCH (09:02)
[2021-09-19] MEDS: Sennosides/Docusate Sodium TABLET PO SCH ×2 (09:02→20:08)
[2021-09-19] MEDS: NIFEdipine XL (24 HR) 30 MG TAB.ER.24 PO SCH (09:03)
[2021-09-19] MEDS: Cholecalciferol (D-3) 1,000 UNIT (25MCG) TABLET PO SCH (09:03)
[2021-09-19] MEDS: Aspirin 81 MG TAB.CHEW PO SCH (09:03)
[2021-09-19] MEDS: Furosemide 20 MG TABLET PO SCH (09:03)
[2021-09-19] MEDS: Nystatin Cream 15 GM TUBE TP SCH ×2 (09:12→20:09)
[2021-09-19] MEDS: *HR* LORazepam 0.5 MG TABLET PO PRN (18:44)
[2021-09-20] MEDS: *HR* Enoxaparin 40 MG/0.4 ML SYRINGE SQ SCH (05:06)
[2021-09-20] MEDS: Aspirin 81 MG TAB.CHEW PO SCH (07:56)
[2021-09-20] MEDS: NIFEdipine XL (24 HR) 30 MG TAB.ER.24 PO SCH (07:56)
[2021-09-20] MEDS: Nystatin SUSP 5 ML UD.LIQ PO SCH (07:56)
[2021-09-20] MEDS: Cholecalciferol (D-3) 1,000 UNIT (25MCG) TABLET PO SCH (07:56)
[2021-09-20] MEDS: Furosemide 20 MG TABLET PO SCH (07:56)
[2021-09-20] MEDS: *HR* SitaGLIPtin 25 MG TABLET PO SCH (07:56)
[2021-09-20] MEDS: Sennosides/Docusate Sodium TABLET PO SCH ×2 (08:00→19:59)
[2021-09-20] MEDS: Nystatin Cream 15 GM TUBE TP SCH ×2 (08:00→19:59)
[2021-09-20] MEDS: Budesonide/Formoterol 160/4.5 1 PUFF INH IH SCH ×2 (08:12→20:03)
[2021-09-20] MEDS ORDERED: Furosemide 20 MG TABLET PO ONE (09:00)
[2021-09-20] MEDS: *HR* LORazepam 0.5 MG TABLET PO PRN (18:39)
[2021-09-21] MEDS: *HR* Enoxaparin 40 MG/0.4 ML SYRINGE SQ SCH (05:05)
[2021-09-21] MEDS: Budesonide/Formoterol 160/4.5 1 PUFF INH IH SCH ×2 (07:42→20:03)
[2021-09-21] MEDS: *HR* SitaGLIPtin 25 MG TABLET PO SCH (08:56)
[2021-09-21] MEDS: Cholecalciferol (D-3) 1,000 UNIT (25MCG) TABLET PO SCH (08:56)
[2021-09-21] MEDS: NIFEdipine XL (24 HR) 30 MG TAB.ER.24 PO SCH (08:57)
[2021-09-21] MEDS: Furosemide 20 MG TABLET PO SCH (08:57)
[2021-09-21] MEDS: Sennosides/Docusate Sodium TABLET PO SCH ×2 (08:57→21:43)
[2021-09-21] MEDS: Aspirin 81 MG TAB.CHEW PO SCH (08:58)
[2021-09-21] MEDS: Nystatin Cream 15 GM TUBE TP SCH ×2 (08:58→21:53)
[2021-09-21] MEDS: Nystatin SUSP 5 ML UD.LIQ PO SCH (08:58)
[2021-09-21] MEDS ORDERED: Furosemide 20 MG TABLET PO ONE (11:02)
[2021-09-21 11:31] LABS: BUN/Creatinine Ratio 19 (6-26); Blood Urea Nitrogen 17 mg/dL (8-23); Calcium 9.7 mg/dL (8.6-10.3); Carbon Dioxide 29 mEq/L (23-29); Chloride 101 mEq/L (98-107); Glucose 127 mg/dL (70-105); Osmolality,Calculated 285 (280-300); Potassium 3.7 mEq/L (3.5-5.1); Sodium 136 mEq/L (136-145); eGFR For African Americans > 60 (> 60); eGFR For Non-African Americans > 60 (> 60)
[2021-09-21] MEDS: *HR* LORazepam 0.5 MG TABLET PO PRN (18:47)
[2021-09-22] MEDS: *HR* Enoxaparin 40 MG/0.4 ML SYRINGE SQ SCH (05:53)
[2021-09-22] MEDS: Budesonide/Formoterol 160/4.5 1 PUFF INH IH SCH ×2 (07:49→19:52)
[2021-09-22] MEDS: Nystatin SUSP 5 ML UD.LIQ PO SCH (09:17)
[2021-09-22] MEDS: Cholecalciferol (D-3) 1,000 UNIT (25MCG) TABLET PO SCH (09:17)
[2021-09-22] MEDS: *HR* SitaGLIPtin 25 MG TABLET PO SCH (09:18)
[2021-09-22] MEDS: Furosemide 20 MG TABLET PO SCH (09:18)
[2021-09-22] MEDS: NIFEdipine XL (24 HR) 30 MG TAB.ER.24 PO SCH (09:18)
[2021-09-22] MEDS: Aspirin 81 MG TAB.CHEW PO SCH (09:18)
[2021-09-22] MEDS: Sennosides/Docusate Sodium TABLET PO SCH ×2 (09:57→22:24)
[2021-09-22] MEDS: Nystatin Cream 15 GM TUBE TP SCH ×2 (09:57→22:24)
[2021-09-23] MEDS: *HR* Enoxaparin 40 MG/0.4 ML SYRINGE SQ SCH (05:49)
[2021-09-23] MEDS: Nystatin SUSP 5 ML UD.LIQ PO SCH (07:46)
[2021-09-23] MEDS: *HR* SitaGLIPtin 25 MG TABLET PO SCH (07:46)
[2021-09-23] MEDS: NIFEdipine XL (24 HR) 30 MG TAB.ER.24 PO SCH (07:47)
[2021-09-23] MEDS: Sennosides/Docusate Sodium TABLET PO SCH ×2 (07:47→20:14)
[2021-09-23] MEDS: Aspirin 81 MG TAB.CHEW PO SCH (07:47)
[2021-09-23] MEDS: Furosemide 20 MG TABLET PO SCH (07:47)
[2021-09-23] MEDS: Cholecalciferol (D-3) 1,000 UNIT (25MCG) TABLET PO SCH (07:47)
[2021-09-23] MEDS: Budesonide/Formoterol 160/4.5 1 PUFF INH IH SCH ×2 (07:52→20:26)
[2021-09-23] MEDS: Nystatin Cream 15 GM TUBE TP SCH ×2 (08:41→20:15)
[2021-09-24] MEDS: *HR* Enoxaparin 40 MG/0.4 ML SYRINGE SQ SCH (05:43)
[2021-09-24] MEDS: Budesonide/Formoterol 160/4.5 1 PUFF INH IH SCH ×2 (07:45→20:04)
[2021-09-24] MEDS: Nystatin SUSP 5 ML UD.LIQ PO SCH (08:02)
[2021-09-24] MEDS: Sennosides/Docusate Sodium TABLET PO SCH ×2 (08:03→19:49)
[2021-09-24] MEDS: *HR* SitaGLIPtin 25 MG TABLET PO SCH (08:03)
[2021-09-24] MEDS: Aspirin 81 MG TAB.CHEW PO SCH (08:03)
[2021-09-24] MEDS: Cholecalciferol (D-3) 1,000 UNIT (25MCG) TABLET PO SCH (08:04)
[2021-09-24] MEDS: Furosemide 20 MG TABLET PO SCH (08:04)
[2021-09-24] MEDS: Nystatin Cream 15 GM TUBE TP SCH ×2 (08:05→19:50)
[2021-09-24] MEDS: NIFEdipine XL (24 HR) 30 MG TAB.ER.24 PO SCH (08:05)
[2021-09-25] MEDS: *HR* Enoxaparin 40 MG/0.4 ML SYRINGE SQ SCH (04:54)
[2021-09-25] MEDS: Budesonide/Formoterol 160/4.5 1 PUFF INH IH SCH (08:07)
[2021-09-25 08:53] VITALS: BP 137/66; PULSE 74; RESP 22; TEMP 97.7; O2SAT 97
[2021-09-25] MEDS: *HR* SitaGLIPtin 25 MG TABLET PO SCH (08:54)
[2021-09-25] MEDS: Cholecalciferol (D-3) 1,000 UNIT (25MCG) TABLET PO SCH (08:55)
[2021-09-25] MEDS: Sennosides/Docusate Sodium TABLET PO SCH (08:55)
[2021-09-25] MEDS: NIFEdipine XL (24 HR) 30 MG TAB.ER.24 PO SCH (08:55)
[2021-09-25] MEDS: Furosemide 20 MG TABLET PO SCH (08:56)
[2021-09-25] MEDS: Aspirin 81 MG TAB.CHEW PO SCH (08:56)
[2021-09-25] MEDS: Nystatin SUSP 5 ML UD.LIQ PO SCH (08:56)
[2021-09-25] MEDS: Nystatin Cream 15 GM TUBE TP SCH (08:57)
[2021-09-25] MEDS ORDERED: FLU Vac QV 21-22 (6Month+)/PF 0.5 ML SYRINGE IM ONE (09:11)
== END 2021-09-25 10:55 | disposition home health service (06) | DRG 189 ==
LOC: INPPIK 08-25 18:54
PROVIDERS: ADMIT Internal Medicine; ATTEND Internal Medicine